=== PATIENT | male | born 1990 | race Caucasian/White ===

== ENCOUNTER 2017-02-02 11:30 | Emergency (ER) | payer BC ==
[~2017-02-02] VITALS: Ht 170.2 cm; Wt 112.1 kg
[2017-02-02 12:30] LABS: microscopic required? NO
[2017-02-02 12:58] LABS: urine erythrocyte NEGATIVE (NEGATIVE)
[2017-02-02 14:11] VITALS: BP 137/83
[2017-02-04 10:41] LABS: RAPID PLASMA REAGIN Non Reactive (Non Reactive)
== END 2017-02-02 14:11 | disposition home or self-care (01) ==
LOC: ED 11:30
PROVIDERS: Emergency Medicine
DX: N50.812 Left testicular pain (principal); F17.200 Nicotine dependence, unspecified, uncomplicated
CPT/HCPCS: 87491; 87591; 99406; J0696; Q0092